=== PATIENT | female | born 1990 | race Caucasian/White ===

== ENCOUNTER 2016-06-11 21:28 | Emergency (ER) | payer OTHER ==
[~2016-06-11] VITALS: Ht 165.1 cm; Wt 57.6 kg
[2016-06-11 21:28] VITALS: Ht 165.1 cm; Wt 57.6 kg
[~2016-06-11 21:28] MED LIST: ETHI1TAB5 PO; FLUT9.9S INH; NITR100C4 PO; PHEN-779 PO
[2016-06-11 22:04] LABS: BLOOD, URINE 3+ (NEGATIVE); COLOR,URINE YELLOW (YELLOW); LEUKOCYTE ESTERASE ,URINE NEGATIVE (NEGATIVE); NITRITE,URINE NEGATIVE (NEGATIVE); UROBILINOGEN,URINE 0.2 EU/DL (NORMAL)
[2016-06-11 22:11] LABS: BASOPHILS # (AUTO) 0.1 T/MM3 (0-0.2); BASOPHILS % (AUTO) 0.6 % (0-2); EOSINOPHILS # (AUTO) 0.3 T/MM3 (0-0.5); EOSINOPHILS % (AUTO) 2.8 % (0-4); HCT - HEMATOCRIT 40.7 % (36-46); HGB - HEMOGLOBIN 13.6 GM/DL (12-16); IMMATURE GRANULOCYTE # (AUTO) 0.01 T/MM3 (0.00-0.03); IMMATURE GRANULOCYTE % (AUTO) 0.1 % (0.0-0.5); LYMPHOCYTES % (AUTO) 42.6 % (23-45); MEAN CORPUSCULAR HGB 28.5 UUG (26-34); MEAN CORPUSCULAR HGB CONC(MCHC 33.4 GM/DL (31-37); MEAN CORPUSCULAR VOLUME 85.3 UM3 (80-100); MONOCYTES # (AUTO) 0.7 T/MM3 (0-0.8); MONOCYTES % (AUTO) 7.9 % (0-9.0); NEUTROPHILS #(AUTO)-ABSOLUTE 4.3 T/MM3 (1.8-7.7); RED BLOOD COUNT 4.77 M/MM3 (4.00-5.20); WBC - WHITE BLOOD COUNT 9.3 T/MM3 (4.5-11.0)
[2016-06-11 22:15] LABS: ALBUMIN 3.9 G/DL (3.5-5.0); ALBUMIN/GLOBULIN RATIO 1.1 RATIO (1.1-2.2); ALKALINE PHOSPHATASE 54 U/L (38-126); ALT (SGPT) 31 U/L (9-52); ANION GAP 14 MEQ/L (5-15); AST (SGOT) 23 U/L (14-36); BUN/CREATININE RATIO 12 RATIO (6-26); CALCIUM 8.8 MG/DL (8.4-10.2); CHLORIDE 107 MEQ/L (98-107); CO2 - CARBON DIOXIDE 20 MEQ/L (22-30); CREATININE 0.9 MG/DL (0.7-1.2); GLOMERULAR FILTRATION RATE 76; GLUCOSE 89 MG/DL (65-110); LIPASE 75 U/L (23-300); POTASSIUM 3.7 MEQ/L (3.6-5); SODIUM 141 MEQ/L (134-144); TOTAL PROTEIN 7.6 G/DL (6.3-8.2)
[2016-06-11 22:23] LABS: BACTERIA,URINE 2+ (NEGATIVE); SQUAMOUS EPITHELIAL CELL,UR >50
[2016-06-11 22:24] LABS: RBC,URINE 20-30 /HPF (0-3)
[2016-06-11] MEDS ORDERED: NORMAL SALINE 1,000 ML IV ONE (22:30)
[2016-06-11] MEDS ORDERED: FENTANYL 100mcg/2ml INJECTION IV ONE (22:30)
[2016-06-11] MEDS ORDERED: ONDANSETRON 4mg/2ml INJECTION IV ONE (22:30)
--- NOTE | 2016-06-11 22:35 | ERPDOC ---
Departure Disposition Decision Date: June 11, 2016 Disposition Decision Time: 23:27 Disposition: 01 DISCHARGED HOME, SELF-CARE Impression Impression Impression: Primary Impression: Kidney stone Severity: Moderate Condition: Improved Seen By: Physician only Referrals: SHEYLA PHILLIP MD (Family) 1 Day Patient Instructions: Kidney Stones (ED) Problems/Meds/Labs Reviewed?: Yes Medications reviewed and manag: Yes Follow up care ordered?: Yes Mental Status: Alert, Oriented Scripts Ondansetron (Zofran Odt) 4 Mg Tab.rapdis 4 MG PO Q4HR Y for NAUSEA &/OR VOMITING for 3 Days, #18 TAB 0 Refills Prov: ZULAY GUERRERO DO 06/11/16 Hydrocodone/Acetaminophen ([place] 5-325 Tablet) 5-325 Tablet 1 TAB PO Q4HR Y for PAIN for 3 Days, #18 TAB 0 Refills Prov: ZULAY GUERRERO DO 06/11/16 Nitrofurantoin Monohyd/M-Cryst (Macrobid 100 mg Capsule) 100 Mg Capsule 100 MG PO BID for 10 Days, #20 CAP 0 Refills Prov: ZULAY GUERRERO DO 06/11/16 HPI - General Medical General Chief Complaint: Flank Pain Stated Complaint: PAIN LEFT SIDE Time Seen by Provider: 21:42 Source: patient Exam Limitations: no limitations HPI - General Medical Initial Comments 26-year-old female presents the emergency department with a chief complaint of left flank pain. Patient was at home one day ago when she noted onset of symptoms. Patient notes a moderate aching sensation in her left flank which radiates anteriorly towards her abdomen. Patient denies any trauma, travel, poorly prepared food, or recent antibiotic use. Patient does not note any exacerbating or remitting symptoms other than some mild improvement with over- the-counter ibuprofen. No other complaints or associated symptoms. Patient was at home when the symptoms began. Symptoms have been persistent in nature since onset. Occurred At: home Onset: Gradual Allergies: Coded Allergies: Bacitracin Zinc (Unverified Allergy, Unknown, 10/24/15) bacitracin (Unverified Allergy, Unknown, 10/24/15) gramicidin D (Unverified Allergy, Unknown, 10/24/15) neomycin sulfate (Unverified Allergy, Unknown, 10/24/15) polymyxin B (Unverified Allergy, Unknown, 10/24/15) polymyxin B sulfate (Unverified Allergy, Unknown, 10/24/15) Past History Past Medical History Pt denies signifigant PMH Surgical History Denies Surgeries Family History Family History: Negative Vaccines Hx Influenza Vaccination: No Hx Pneumococcal Vaccination: No Social History Smoking Status: Never smoker Substance Use Type: does not use Alcohol Intake: a few times a month Review of Systems Constitutional Constitutional: DENIES: chills, fever Eyes General: DENIES: erythema, exudate Lids/Accessories: DENIES: erythema, swelling Vision: DENIES: acuity, blurring ENMT Ears: DENIES: drainage, erythema Hearing: DENIES: hearing loss Balance: DENIES: ataxia, falling to one side Sinuses: DENIES: congestion, pain Nose: DENIES: nosebleeds, pain Mouth/Throat: DENIES: painful swallowing, sore throat Teeth: DENIES: pain Jaw: DENIES: pain Cardiovascular Cardiac: DENIES: chest pain, dyspnea on exertion Rhythm/Rate: DENIES: irregular beat, palpitations Vascular: DENIES: pedal edema, unilateral swelling Pulmonary Respiratory: DENIES: cough, dyspnea, pleuritic chest pain, sputum GI Upper Abdomen: nausea, pain, DENIES: vomiting Lower Abdomen: DENIES: diarrhea, pain General: DENIES: dysuria, frequency Musculoskeletal General: DENIES: joint pain, tenderness Integumentary Skin: DENIES: itching, rash Neurological General: DENIES: headache, numbness, weakness Psychiatric Psychiatric: DENIES: emotional instability, suicidal ideation/attempt Endocrine Endocrine: DENIES: polydipsia, polyphagia Hematologic/Lymphatic Hematologic/Lymphatic: DENIES: frequent nosebleeds, lymphadenopathy Allergic/Immunological Allergic/Immunoligical: DENIES: allergic reactions, hives Physical Exam General General Nourishment: well nourished, well developed, appears stated age, no acute distress, adult General Body Habitus: well groomed Vitals and Pain First Documented Vital Signs Date Time Temp Pulse Resp B/P Pulse Ox O2 Delivery O2 Flow Rate FiO2 06/11/16 21:28 98.3 91 20 132/61 99 Room Air Weight: Kilograms: 57.600 Height (feet): 5 Height (inches): 5.00 Triage Pain Scale: RN VS reviewed by Provider: Yes Normal Exams: Head: Normocephalic w/o trauma Eyes: Pupils are PERRLA w/ EOMI, No scleral icterus, irritation, or foreign bodies noted ENMT: No facial trauma, nasal exudates, pharyngeal erythema, or exudates are noted Dental: No fractured, loose, or missing teeth noted Neck: Full range of motion, without adenopathy, JVD, bruits or thyromegaly Chest/Resp: Clear all rose, with good airflow, and symmetry bilaterally CV: Regular rate and rhythm, without murmur or gallop, Pulses 2+ all extremities, capillary refill, <2 seconds all ext., no pedal edema noted Abdomen: Bowel sounds positive, soft, non-tender, non-distended, no hepatosplenomegaly, masses or bruits noted Lymphatic: No lymphadenopathy, or lymphedema noted Musculoskeletal: No tenderness, or deformity noted, good range of motion, all extremities Integumentary: No rashes, hives, or bruising noted, hair and nails, without abnormality Neurologic: Patient is alert, and oriented, cranial nerves, motor/sensory/ cerebellar, exams w/o gross deficits, to observation Psychiatric: Patient exhibits, appropriate attention, emotion and affect Differential Diagnoses Considering: Medication Effect, Metabolic, UTI, Other (kidney stone/) Progress Results/Orders Orders Procedure Category Date Status Time Cbc W/Auto LAB 06/11/16 Complete Diff-Reflex Manual Cmp - Comprehensive LAB 06/11/16 Complete Metabolic Lipase LAB 06/11/16 Complete LAB 06/11/16 Complete Qualitative, Urine 21:50 UA, LAB 06/11/16 Complete Dip&Micro(Complete) & 21:58 Urine Culture NIRAV 06/11/16 In Process 22:24 Normal Saline (Normal PHA 06/11/16 Complete Saline Iv) 22:30 Ondansetron Inj PHA 06/11/16 Complete (Zofran) 22:30 Fentanyl (Fentanyl) PHA 06/11/16 Complete 22:30 Ct Renal W/O Contrast CT 06/11/16 Logged 22:29 Nitrofurantoin PHA 06/11/16 Complete (Macrobid) (Macrobid) 23:30 Hydrocodone/Apap PHA 06/12/16 In Process 5/325 [place] ([place] 5 00:00 Lab Results Laboratory Tests Test 06/11/16 21:57 06/11/16 21:58 White Blood Count 9.3T/MM3 Red Blood Count 4.77M/MM3 Hemoglobin 13.6GM/DL Hematocrit 40.7% Mean Corpuscular Volume 85.3UM3 Mean Corpuscular Hemoglobin 28.5UUG Mean Corpuscular Hemoglobin Concent 33.4GM/DL RDW Standard Deviation 41.3FL Platelet Count 414T/MM3 Mean Platelet Volume 10.0UM3 Immature Granulocyte % (Auto) 0.1% Neutrophils (%) (Auto) 46.0% Lymphocytes (%) (Auto) 42.6% Monocytes (%) (Auto) 7.9% Eosinophils (%) (Auto) 2.8% Basophils (%) (Auto) 0.6% Absolute Immature Granulocyte (auto 0.01T/MM3 Absolute Neutrophils (auto) 4.3T/MM3 Absolute Lymphocytes (auto) 4.0T/MM3 Absolute Monocytes (auto) 0.7T/MM3 Absolute Eosinophils (auto) 0.3T/MM3 Absolute Basophils (auto) 0.1T/MM3 Turbidity < 20 Sodium Level 141MEQ/L Potassium Level 3.7MEQ/L Chloride Level 107MEQ/L Carbon Dioxide Level 20MEQ/L Anion Gap 14MEQ/L Blood Urea Nitrogen 11.0MG/DL Creatinine 0.9MG/DL Glomerular Filtration Rate Calc 76 BUN/Creatinine Ratio 12RATIO Glucose Level 89MG/DL Calculated Osmolality 269MOSM/KG Calcium Level 8.8MG/DL Total Bilirubin 0.90MG/DL Icterus Index < 2 Aspartate Amino Transf (AST/SGOT) 23U/L Alanine Aminotransferase (ALT/SGPT) 31U/L Alkaline Phosphatase 54U/L Total Protein 7.6G/DL Albumin 3.9G/DL Globulin 3.7G/DL Albumin/Globulin Ratio 1.1RATIO Lipase 75U/L Chemistry Specimen Hemolysis 34 Urine Collection Type Cleancatch-midstream Urine Color Yellow Urine Turbidity Sl cloudy Urine pH 6.0 Urine Specific [place] 1.025 Urine Protein Negative Urine Glucose (UA) Negative Urine Ketones Negative Urine Blood 3+ Urine Nitrite Negative Urine Bilirubin Negative Urine Urobilinogen 0.2EU/DL Urine Leukocyte Esterase Negative Urine RBC 20-30/HPF Urine WBC 10-20/HPF Urine Squamous Epithelial Cells >50 Urine Bacteria 2+ Urine Culture Indicated Cult reflexed &setup Urine Test Negative Medications Current ED Medications Sodium Chloride (Normal Saline IV) 1,000 ml @ 999 mls/hr Q1H1M ONCE IV Last administered on 06/11/16 23:06; Start 06/11/16 at 22:30; Stop 06/11/16 at 23:30; Status DC Ondansetron HCl (Zofran) 4 mg O ONCE IV Last administered on 06/11/16 23:07; Start 06/11/16 at 22:30; Stop 06/11/16 at 22:31; Status DC Fentanyl (Fentanyl) 50 mcg O ONCE IV ; Start 06/11/16 at 22:30; Stop 06/11/16 at 22:31; Status DC Nitrofurantoin Macrocrystals (Macrobid) 100 mg O ONCE PO ; Start 06/11/16 at 23: 30; Stop 06/11/16 at 23:31; Status DC Acetaminophen/ Hydrocodone Bitart ([place] 5 (PrePack)) 1 pack O ONCE SENT HOME ; Start 06/12/16 at 00:00; Stop 06/12/16 at 00:01 Progress Progress Labs / imaging were discussed in detail with the patient and family and questions are answered. Patient is given IV hydration. Patient is given parental narcotic and antiemetic medications intravenously with improvement of symptoms. Patient is discharged home in improved condition. She is to follow up as instructed. Long discussion was had with the patient who will follow-up with her primary care physician Dr. Phillip and he will refer the patient to urology for further evaluation and treatment. Patient is also started on Macrobid in the emergency Department. Patient requests Macrobid stating she is only comfortable taking that antibiotic as she has had it in the past and has had problems with several other antibiotics. Patient is discharged home in improved condition. She is to follow up as instructed. She is to return to the emergency Department if her condition worsens or changes in any manner. Prescription for [place], Zofran, and Macrobid is provided. Patient is not felt to have an infectious process currently. Her CBC is unremarkable. She is afebrile. Her urinalysis is secondary to a contaminant. CT CT : CT: Abd/Pelvis no contrast Interpretation: Abnormal (4 millimeter distal stone at the UVJ. No other acute processes.), Faxed Report ZULAY GUERRERO DO June 11, 2016 22:35
--- NOTE | 2016-06-11 22:44 | NUR ---
RETURN FROM CT
[2016-06-11] MEDS ORDERED: NITR100C4 PO (23:28)
[2016-06-11] MEDS ORDERED: ONDA4TAB7 PO (23:28)
[2016-06-11] MEDS ORDERED: HYDR-4246 PO (23:28)
[2016-06-11] MEDS ORDERED: NITROFURANTOIN (Macrobid) 100mg CAP PO ONE (23:30)
[2016-06-12] VITALS: BP 124/61; PULSE 91; RESP 18; TEMP 98.9; O2SAT 100
[2016-06-12] MEDS ORDERED: HYDROCODONE/APAP 5/325 (PrePack) SENT HOME ONE
--- NOTE | 2016-06-12 | NUR ---
DEPART PT IS GIVEN DISMISSAL INSTRUCTIONS WITH VERBAL UNDERSTANDING. PT IS GIVEN SCRIPT X2. PT IS GIVEN SUPPLIES TO STRAIN HER URINE
--- NOTE | 2016-06-12 08:00 | DI ---
Indication: ITS.REASON: L flank pain PROCEDURE: CT RENAL W/O CONTRAST: Encounter: Initial Comparison: None Technique: Axial CT images were performed through the abdomen and pelvis without intravenous contrast. Coronal and sagittal two-dimensional reformats. Automated Exposure Control and Iterative Reconstruction dose reducing techniques were utilized. Findings: The lung bases are clear. The unenhanced contours of the liver are unremarkable. Small gallstone present in the gallbladder. The spleen, pancreas and adrenal glands are within normal limits. Left kidney shows a couple tiny stones with mild hydronephrosis. Right kidney shows a couple small nonobstructing stones. Ureters cannot be accurately followed given the lack of intra-abdominal fat. There is a 3 mm stone in the region of the left ureterovesicular junction. Small large bowel loops are grossly normal as is the bladder. Uterus is unremarkable. Bone windows show are within normal limits. Impression: Minimally obstructing 3 mm left distal ureteral stone at the ureterovesicular junction. There is a preliminary report by [facility]. .
== END 2016-06-12 | disposition home or self-care (01) ==
LOC: ED 21:28
DX: N13.2 Hydronephrosis with renal and ureteral calculous obstruction (principal)
CPT/HCPCS: 74176; 80053; 81001; 81025; 83690; 85025; 87086; 96361; 96374; 99284; J2405; J7030